=== PATIENT | female | born 1955 | race Caucasian/White ===

== ENCOUNTER 2021-10-04 07:10 | Day surgery (SDC) | payer OTHER ==
[2021-10-03 10:30] VITALS: BMI 24.2
[2021-10-04] MEDS ORDERED: PROPOFOL 20 ML ONE ×2 (09:43)
[2021-10-04] MEDS ORDERED: MIDAZOLAM HCL 2 MG/2 ML SINGLE DOSE VIAL ONE (09:44)
[2021-10-04] MEDS ORDERED: LIDOCAINE HCL/PF 2% SDV 5ML VIAL ONE (10:37)
[2021-10-04] MEDS ORDERED: DEXAMETHASONE SOD PHOSPHATE 4 MG/1 ML VIAL ONE (10:37)
[2021-10-04] MEDS ORDERED: ONDANSETRON 4 MG/2 ML VIAL ONE (10:37)
[2021-10-04] MEDS ORDERED: LIDOCAINE HCL 2% JELLY (5 ML/TUBE) ONE (10:37)
[2021-10-04] MEDS ORDERED: ceFAZolin SODIUM 1 GM VIAL ONE (10:37)
[2021-10-04] MEDS ORDERED: BUPIVACAINE HCL/PF 2.5 MG/ML - 30 ML VIAL IJ ONE (10:38)
[2021-10-04] MEDS ORDERED: KETOROLAC TROMETHAMINE 30 MG/1 ML VIAL ONE (10:38)
[2021-10-04] MEDS ORDERED: SEVOFLURANE 250 ML BTL ONE (10:41)
[2021-10-04] MEDS ORDERED: oxyCODONE HCL 5 MG TABLET PO PRN ×2 (10:59)
[2021-10-04] MEDS ORDERED: ONDANSETRON 4 MG/2 ML VIAL IVPUSH PRN (10:59)
[2021-10-04] MEDS ORDERED: PROMETHAZINE HCL 25 MG/1 ML VIAL IVPUSH PRN (10:59)
[2021-10-04 11:32] VITALS: TEMP 97.6
[2021-10-04 11:58] VITALS: BP 144/78; PULSE 64
== END 2021-10-04 12:09 | disposition home or self-care (01) ==
LOC: FASU 07:10
PROVIDERS: ATTEND Orthopaedic Surgery
PROC: 0MTN0ZZ Resection of Right Knee Bursa and Ligament, Open Approach (ICD-10-PCS; 2021-10-04)
PROC: 0JBN0ZZ Excision of Right Lower Leg Subcutaneous Tissue and Fascia, Open Approach (ICD-10-PCS; principal; 2021-10-04 10:34)
DX: M25.861 Other specified joint disorders, right knee (principal); M70.41 Prepatellar bursitis, right knee
CPT/HCPCS: 88305-TC; 88341-TC; 88342-TC; 94760